=== PATIENT | male | born 1950 | race Caucasian/White ===

== ENCOUNTER 2017-11-28 11:30 | Emergency (ER) | payer MEDICARE ==
[2017-11-28] MEDS ORDERED: SODIUM CHLORIDE 0.9% 500 ML IV STA (11:39)
[2017-11-28] MEDS ORDERED: ADENOSINE 3 MG/ML 2 ML VIAL IVP STA (11:39)
[2017-11-28 12:07] LABS: Basophils # (A) 0.1 k/uL (0-0.2); Basophils % (A) 1 %; Eosinophils # (A) 0.2 k/uL (0-0.7); Eosinophils % (A) 1 %; HCT 50.7 % (39.0-53.0); HGB 16.8 gm/dL (13.0-17.5); Lymphocytes # (A) 3.8 k/uL (1.0-4.8); Lymphocytes % (A) 22 %; MCH 30.9 pg (25.0-35.0); MCHC 33.2 g/dL (31.0-37.0); MCV 93.1 fL (80.0-100.0); Mean Platelet Volume 7.9; Monocytes # (A) 1.2 k/uL (0-1.0); Monocytes % (A) 7 %; Neutrophils # (A) 11.4 k/uL (1.3-7.7); Neutrophils % (A) 67 %; Platelet Count 322 k/uL (150-450); RBC 5.45 m/uL (4.30-5.90); RDW 13.7 % (11.5-15.5); WBC 16.9 k/uL (3.8-10.6)
[2017-11-28 12:12] LABS: INR 1.1 (<1.2); Partial Thromboplastin Time 24.4 sec (22.0-30.0); Prothrombin Time 10.9 sec (9.0-12.0)
[2017-11-28 12:13] LABS: ALT 57 U/L (21-72); AST 37 U/L (17-59); Alkaline Phosphatase 98 U/L (38-126); Anion Gap 10 mmol/L; Blood Urea Nitrogen 15 mg/dL (9-20); Carbon Dioxide 23 mmol/L (22-30); Chloride 105 mmol/L (98-107); Glucose 99 mg/dL (74-99); Magnesium 1.9 mg/dL (1.6-2.3); Potassium 4.4 mmol/L (3.5-5.1); Sodium 138 mmol/L (137-145); Total Bilirubin 1.1 mg/dL (0.2-1.3); Total Protein 7.5 g/dL (6.3-8.2)
--- NOTE | 2017-11-28 12:17 | XR ---
EXAMINATION TYPE: XR chest 2V DATE OF EXAM: 11/28/2017 COMPARISON: NONE HISTORY: Dysrhythmia, SVT. TECHNIQUE: Frontal and lateral views of the chest are obtained. FINDINGS: Overlying EKG wires are seen. There is no focal air space opacity, pleural effusion, or pn eumothorax seen. The cardiac silhouette size is within normal limits. The osseous structures are i ntact. IMPRESSION: No acute process.
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
[2017-11-28 12:32] LABS: Creatine Kinase 107 U/L (55-170)
[2017-11-28 12:46] LABS: Creatine Kinase MB 1.4 ng/mL (0.0-2.4); Troponin I <0.012 ng/mL (0.000-0.034)
[2017-11-28] MEDS ORDERED: METOPROLOL TARTRATE 25 MG TAB PO STA (13:29)
[2017-11-28 13:50] VITALS: TEMP 97.8
[2017-11-28 14:02] VITALS: BP 138/83; PULSE 92; RESP 16
== END 2017-11-28 14:24 | disposition home or self-care (01) ==
LOC: EC 11:30
DX: I47.1 Supraventricular tachycardia (principal); F17.200 Nicotine dependence, unspecified, uncomplicated; Z79.82 Long term (current) use of aspirin; Z79.899 Other long term (current) drug therapy
CPT/HCPCS: 36415; 93005; 80053; 82550; 82553; 83735; 84484; 85025; 85610; 85730; 71046; 99285; 96374; 96361; J0153

== ENCOUNTER 2022-12-06 09:40 | Observation (INO) | payer MEDICARE, OTHER ==
[2022-12-06 10:10] LABS: Basophils # (A) 0.1 k/uL (0-0.2); Basophils % (A) 1 %; Eosinophils # (A) 0.4 k/uL (0-0.7); Eosinophils % (A) 3 %; HCT 53.6 % (39.0-53.0); HGB 17.7 gm/dL (13.0-17.5); Lymphocytes % (A) 32 %; MCH 31.8 pg (25.0-35.0); MCV 96.4 fL (80.0-100.0); Mean Platelet Volume 9.3; Monocytes # (A) 0.9 k/uL (0-1.0); Monocytes % (A) 7 %; Neutrophils % (A) 55 %; Platelet Count 409 k/uL (150-450); RBC 5.56 m/uL (4.30-5.90); RDW 13.6 % (11.5-15.5); WBC 12.7 k/uL (3.8-10.6)
[2022-12-06 10:23] LABS: Partial Thromboplastin Time 25.1 sec (22.0-30.0); Prothrombin Time 10.4 sec (9.0-12.0)
--- NOTE | 2022-12-06 10:27 | XR ---
EXAMINATION TYPE: XR chest 2V DATE OF EXAM: 12/06/2022 COMPARISON: 11/28/2017 INDICATION: Rapid heart rate TECHNIQUE: Frontal and lateral views of the chest are obtained. FINDINGS: The heart size is normal. The pulmonary vasculature is normal. The lungs are clear. IMPRESSION: 1. No acute pulmonary process.
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
[2022-12-06 10:30] LABS: ALT 29 U/L (4-49); AST 35 U/L (17-59); African American GFR (CKD) 87 (>60 ml/min/1.73 sqM); Albumin 4.4 g/dL (3.5-5.0); Alkaline Phosphatase 100 U/L (38-126); Anion Gap 10 mmol/L; Blood Urea Nitrogen 22 mg/dL (9-20); Calcium 9.4 mg/dL (8.4-10.2); Carbon Dioxide 22 mmol/L (22-30); Chloride 107 mmol/L (98-107); Glucose 166 mg/dL (74-99); Magnesium 1.8 mg/dL (1.6-2.3); Non-African American GFR(CKD) 75 (>60 ml/min/1.73 sqM); Potassium 4.5 mmol/L (3.5-5.1); Sodium 139 mmol/L (137-145); Total Bilirubin 0.7 mg/dL (0.2-1.3); Total Protein 7.1 g/dL (6.3-8.2)
[2022-12-06] MEDS ORDERED: DILTIAZEM DRIP BOLUS FROM BAG 1 MG SOLN IV ONE (10:52)
[2022-12-06] MEDS ORDERED: HEPARIN SODIUM 1,000 UN/ML (10ML VL) IV ONE (11:21)
[2022-12-06] MEDS ORDERED: HEPARIN SODIUM 1,000 UN/ML (10ML VL) IV PRN (11:21)
[2022-12-06] MEDS: DILTIAZEM 125 MG in SODIUM CHLORIDE 0.9% 100 ML IV SCH (11:22)
[2022-12-06] MEDS ORDERED: HEPARIN SOD,PORK IN 0.45% NACL 25,000 UNIT in 0.45% NACL 1 250ML.BAG IV SCH (11:30)
[2022-12-06] MEDS ORDERED: NALOXONE 0.4 MG/ML 1 ML VIAL IV PRN (12:07)
[2022-12-06] MEDS: SODIUM CHLORIDE 0.9% 1,000 ML IV SCH (14:13)
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
[2022-12-06 17:03] VITALS: RESP 16
[2022-12-06] MEDS: MAGNESIUM SULFATE-D5W PMX 1 GM in DEXTROSE/WATER 1 100ML.BAG IVPB SCH ×2 (18:21→20:25)
[2022-12-06] MEDS ORDERED: LATANOPROST 0.005% OPHTH DROPS 2.5 ML BTL BOTH EYES SCH (21:00)
[2022-12-07 07:23] LABS: Basophils # (A) 0.1 k/uL (0-0.2); Basophils % (A) 1 %; Eosinophils # (A) 0.2 k/uL (0-0.7); Eosinophils % (A) 2 %; HCT 51.1 % (39.0-53.0); HGB 16.8 gm/dL (13.0-17.5); Lymphocytes # (A) 2.5 k/uL (1.0-4.8); Lymphocytes % (A) 26 %; MCH 31.9 pg (25.0-35.0); MCHC 32.9 g/dL (31.0-37.0); MCV 96.8 fL (80.0-100.0); Mean Platelet Volume 9.1; Monocytes # (A) 0.7 k/uL (0-1.0); Monocytes % (A) 7 %; Neutrophils # (A) 6.1 k/uL (1.3-7.7); Neutrophils % (A) 63 %; Platelet Count 305 k/uL (150-450); RBC 5.27 m/uL (4.30-5.90); RDW 13.4 % (11.5-15.5); WBC 9.7 k/uL (3.8-10.6)
[2022-12-07 08:10] LABS: Prothrombin Time 10.9 sec (9.0-12.0)
[2022-12-07] MEDS: DILTIAZEM 125 MG in SODIUM CHLORIDE 0.9% 100 ML IV SCH (08:24)
[2022-12-07] MEDS ORDERED: APIXABAN 5 MG TAB PO SCH (09:00)
[2022-12-07] MEDS ORDERED: ATORVASTATIN 20 MG TAB PO SCH (09:00)
[2022-12-07] MEDS ORDERED: METOPROLOL SUCCINATE (ER) 50 MG TAB.ER.24H PO SCH (09:00)
[2022-12-07] MEDS ORDERED: METOPROLOL SUCCINATE (ER) 25 MG TAB.ER.24H PO SCH (09:00)
[2022-12-07] MEDS: SODIUM CHLORIDE 0.9% 1,000 ML IV SCH (09:10)
[2022-12-07 09:13] VITALS: TEMP 98.2
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
--- NOTE | 2022-12-07 10:41 | CA ---
Transthoracic Echo Report Name: Mauricio Tavarez Age: 72 Gender: M : 1950 Exam Date: 12/07/2022 08:21 Exam Location: [place] [facility] Ht (in): 72 Wt (lb): 220 Ordering Physician: Chayo Jackman MD Attending/Referring Phys: Drier Operator Charley Santos RDCS Procedure CPT: Indications: afib Cardiac Hx: Hx of SVT Technical Quality: Good Contrast 1: Total Dose (mL): Contrast 2: Total Dose (mL): MEASUREMENTS (Male / Female) Normal Values 2D ECHO LV Diastolic Diameter PLAX 5.2 cm 4.2 - 5.9 / 3.9 - 5.3 cm LV Systolic Diameter PLAX 3.9 cm IVS Diastolic Thickness 1.3 cm 0.6 - 1.0 / 0.6 - 0.9 cm LVPW Diastolic Thickness 1.3 cm 0.6 - 1.0 / 0.6 - 0.9 cm LV Relative Wall Thickness 0.5 RV Internal Dim ED PLAX 3.1 cm LA Systolic Diameter LX 3.8 cm 3.0 - 4.0 / 2.7 - 3.8 cm LV Diastolic Volume MOD 4C 112.8 cm??? LV Systolic Volume MOD 4C 64.5 cm??? LV Ejection Fraction MOD 4C 42.8 % LV Cardiac Index MOD 4C 1506.6 cm???/min???m??? LV Diastolic Length 4C 9.5 cm LV Systolic Length 4C 8.4 cm LV Diastolic Volume MOD 2C 121.1 cm??? LV Systolic Volume MOD 2C 72.1 cm??? LV Ejection Fraction MOD 2C 40.4 % LV Cardiac Index MOD 2C 1527.8 cm???/min???m??? LV Diastolic Length 2C 10.6 cm LV Systolic Length 2C 8.9 cm LA Volume 57.3 cm??? 18 - 58 / 22 - 52 cm??? M-MODE Aortic Root Diameter MM 3.5 cm MV E Point Septal Separation 0.8 cm AV Cusp Separation MM 1.7 cm DOPPLER AV Peak Velocity 135.3 cm/s AV Peak Gradient 7.3 mmHg MV Area PHT 3.0 cm??? Mitral E Point Velocity 62.7 cm/s Mitral A Point Velocity 84.5 cm/s Mitral E to A Ratio 0.7 MV Deceleration Time 252.9 ms MV E' Velocity 5.6 cm/s Mitral E to MV E' Ratio 11.1 FINDINGS Left Ventricle Left ventricular ejection fraction is estimated at 55 %. Left ventricular cavity size normal. Mildly increased septal wall thickness. Right Ventricle Normal right ventricular size. Unable to estimate the right ventricular systolic pressure. Right Atrium Normal right atrial size. Left Atrium Normal left atrial size. Mitral Valve Structurally normal mitral valve. No mitral stenosis, regurgitation or prolapse. Aortic Valve Trileaflet aortic valve. No aortic valve stenosis or regurgitation. Tricuspid Valve Structurally normal tricuspid valve. No tricuspid regurgitation. Pulmonic Valve Structurally normal pulmonic valve. Trace pulmonic regurgitation. Pericardium Normal pericardium. No pericardial effusion. Aorta Normal size aortic root and proximal ascending aorta. CONCLUSIONS Normal LV size and preserved systolic function mild mitral and tricuspid regurgitation. No pericardial effusion. Right-sided pressures are not well quantified Previewed by: Dr. Lana Gong MD (Electronically Signed) Final Date: 07 December 2022 10:40
[2022-12-07 12:14] VITALS: BP 146/76; PULSE 73
--- NOTE | 2022-12-07 13:42 | P.DS ---
Providers Date of admission: 12/06/22 12:13 Attending physician: Chayo Jackman MD Consults: 12/06/22 12:07 Consult Physician Routine Consulting Provider: Meg Nelson Consult Reason/Comments: new onset afib Do you want consulting provider notified?: Yes Primary care physician: Cara Echavarria [facility] Hospital Course: Discharge Diagnosis: Atrial fibrillation with RVR Leukocytosis Chronic conditions: SVT, dyslipidemia, glaucoma Hospital Course: Patient is a 72-year-old male with PMH of SVT, dyslipidemia, glaucoma that presents the ED for palpitations. Symptoms started while vacuuming today. He denies any excessive caffeine or alcohol use. He has a history of SVT which was terminated with adenosine many years ago. Patient reports being able to walk 3 miles without any difficulties. He currently denies any chest pain, shortness of breath, palpitations or lightheadedness. In the ED, he was noted to be tachycardic with heart rate of 190. Vital signs were otherwise stable. CBC showed WBC count of 12.7 and hemoglobin of 17.7. INR was 1. CMP showed BUN of 22 and glucose of 166. Troponin was less than 0.012. Chest x-ray was negative. EKG showed atrial fibrillation with RVR. Patient is admitted for further management of symptoms. Patient will was started on Cardizem drip and heparin drip. Patient's heart rate was then controlled and he was transitioned to metoprolol 50 mg daily and Eliquis. Patient's echocardiogram was unremarkable. At the time of discharge patient denied any palpitations and he is looking forward to going home. Patient was instructed to follow closely with cardiology. Patient seen and examined at bedside on 12/07/2022.[] General examination - Alert and Oriented 3 in NAD Heart - + S1S2 no murmurs Lungs - Clear to auscultation Abdomen soft NT ND +ve BS Extremities - No edema [employer] - Moving all 4 extremities spontaneously Psych - Calm and cooperative A total of [33] minutes of time were spent preparing this complex discharge summary . Patient Condition at Discharge: Good Plan - Discharge Summary New Discharge Prescriptions: New Metoprolol Succinate (ER) [Toprol XL] 50 mg PO DAILY 30 Days #30 tab Apixaban [Eliquis] 5 mg PO BID 30 Days #60 tab Continue Atorvastatin Calcium [Lipitor] 20 mg PO DAILY Multivitamins, Thera [Multivitamin (formulary)] 1 tab PO DAILY Brimonidine Tartrate [Alphagan P 0.2% Ophth Soln] 1 drop BOTH EYES BID Co Q-10(Unknown Dose) 1 tab PO DAILY Latanoprost [Latanoprost 0.005%] 1 drop BOTH EYES HS Dorzolamide 2% [Trusopt 2%] 1 drop BOTH EYES BID Vitamin D3(Unknown Dose) 1 tab PO DAILY Vitamin B-12(Unknown Dose) 1 tab PO DAILY Discontinued Metoprolol Succinate (ER) [Toprol Xl] 25 mg PO DAILY Discharge Medication List Atorvastatin Calcium [Lipitor] 20 mg PO DAILY 11/28/17 [History] Brimonidine Tartrate [Alphagan P 0.2% Ophth Soln] 1 drop BOTH EYES BID 12/06/22 [History] Co Q-10(Unknown Dose) 1 tab PO DAILY 12/06/22 [History] Dorzolamide 2% [Trusopt 2%] 1 drop BOTH EYES BID 12/06/22 [History] Latanoprost [Latanoprost 0.005%] 1 drop BOTH EYES HS 12/06/22 [History] Multivitamins, Thera [Multivitamin (formulary)] 1 tab PO DAILY 12/06/22 [History] Vitamin B-12(Unknown Dose) 1 tab PO DAILY 12/06/22 [History] Vitamin D3(Unknown Dose) 1 tab PO DAILY 12/06/22 [History] Apixaban [Eliquis] 5 mg PO BID 30 Days #60 tab 12/07/22 [Rx] Metoprolol Succinate (ER) [Toprol XL] 50 mg PO DAILY 30 Days #30 tab 12/07/22 [Rx] Follow up Appointment(s)/Referral(s): Braden Knox MD [STAFF PHYSICIAN] - 2 Weeks Cara Roe MD [Primary Care Provider] - 1-2 days Discharge Disposition: HOME SELF-CARE
== END 2022-12-07 14:25 | disposition home or self-care (01) ==
LOC: EC 09:40 → 3SCARD 12:13 → INTOOBSV 12:13 → 3SCARD 13:22
PROVIDERS: ADMIT Family Medicine; ATTEND Family Medicine
DX: I48.0 Paroxysmal atrial fibrillation (principal); E78.5 Hyperlipidemia, unspecified; I10 Essential (primary) hypertension; I47.1 Supraventricular tachycardia; F10.90 Alcohol use, unspecified, uncomplicated; D72.829 Elevated white blood cell count, unspecified; H40.9 Unspecified glaucoma; Z79.899 Other long term (current) drug therapy
CPT/HCPCS: 96366 ×3; 96367; 96376 ×2; 96368; 96365; 99285; 36415; 94760; 93005; 93306; 80053; 84443; 83735; 84484; 85025 ×2; 85610 ×2; 85730 ×2; 71046; G0378 ×2; J1644 ×2; J3475